=== PATIENT | female | born 1945 | race Caucasian/White ===

== ENCOUNTER → 2018-09-12 | Outpatient (CLI) | payer MEDICARE, OTHER ==
--- NOTE | 2018-09-12 14:12 | RADIOLOGY REPORT (SQ) ---
EXAM DESCRIPTION: U/S RETROPERITON (RENAL/AORTA) COMPLETED DATE/TIME: 09/12/2018 11:25 am REASON FOR STUDY: Chronic kidney disease COMPARISON: None. TECHNIQUE: Dynamic and static grayscale images acquired of the kidneys and bladder and recorded on P ACS. Additional selected color Doppler and spectral images recorded. LIMITATIONS: None. FINDINGS: RIGHT KIDNEY: The right kidney measures 7.5 cm in length and has an atrophic appearance. Diffuse increased echogenicity of the kidney, likely consistent with the history of underlying medic al renal disease. Several cystic lesions identified. The tow largest measure 1.1 x 1.3 x 1.0 cm and 0.8 x 1.1 x 1.1 cm no hydronephrosis. LEFT KIDNEY: The left kidney measures 9.1 cm in length. Diffuse increased echogenicity, likely cons istent with the history of underlying medical renal disease. Multiple cystic lesions are noted. The two largest measure 1.2 x 1.5 x 0.9 cm and 0.9 x 1.0 x 0.6 cm. No hydronephrosis. BLADDER: No masses. Bilateral ureteral jets are visualized. OTHER FINDINGS: No other significant finding. IMPRESSION: 1. Diffuse increased echogenicity of the kidneys, the findings are likely consistent wi th the patient's known history of chronic kidney disease. 2. Atrophic right kidney. 3. Small bilateral renal cysts. 4. No evidence of hydronephrosis. 5. NORMAL BLADDER ULTRASOUND. TECHNICAL DOCUMENTATION: JOB ID: [id number] [employer]- All Rights Reserved Reading location - IP/workstation name: [email or web address]
== END ==
LOC: RAD 09:45
PROVIDERS: ATTEND Internal Medicine Nephrology
DX: R33.9 Retention of urine, unspecified (principal); N18.4 Chronic kidney disease, stage 4 (severe)
CPT/HCPCS: 76770

== ENCOUNTER → 2018-11-20 | Outpatient (CLI) | payer MEDICARE, OTHER ==
[2018-11-20 11:48] LABS: ABSOLUTE BASOPHILS # (AUTO) 0.1 10^3/uL (0.0-0.2); ABSOLUTE LYMPHOCYTES (AUTO) 2.2 10^3/uL (0.5-4.7); ABSOLUTE MONOCYTES (AUTO) 0.9 10^3/uL (0.1-1.4); ABSOLUTE NEUT (AUTO) 5.9 10^3/uL (1.7-8.2); BASOPHILS % (AUTO) 0.7 % (0-2); EOSINOPHILS % (AUTO) 0.1 % (0-6); HEMATOCRIT 37.4 % (36.0-47.0); HEMOGLOBIN 12.7 g/dL (12.0-15.5); LYMPHOCYTES % (AUTO) 24.3 % (13-45); MEAN CORPUSCULAR HEMOGLOBIN 30.8 pg (27.0-33.4); MEAN CORPUSCULAR VOLUME 91 fl (80-97); MONOCYTES % (AUTO) 9.7 % (3-13); PLATELET COUNT 303 10^3/uL (150-450); RED BLOOD COUNT 4.12 10^6/uL (3.72-5.28); RED CELL DISTRIBUTION WIDTH 14.9 % (11.5-14.0); SEGMENTED NEUTROPHILS % (AUTO) 65.2 % (42-78); TOTAL CELLS COUNTED % (AUTO) 100 %; WHITE BLOOD COUNT 9.1 10^3/uL (4.0-10.5)
[2018-11-20 12:04] LABS: ALBUMIN 4.3 g/dL (3.5-5.0); ANION GAP 13 (5-19); BLOOD UREA NITROGEN 41 mg/dL (7-20); CALCIUM 9.7 mg/dL (8.4-10.2); CARBON DIOXIDE 26 mmol/L (22-30); CHLORIDE 104 mmol/L (98-107); GLUCOSE 108 mg/dL (75-110); PHOSPHORUS 4.1 mg/dL (2.5-4.5); POTASSIUM 4.7 mmol/L (3.6-5.0); SODIUM 142.6 mmol/L (137-145)
[2018-11-20 16:45] LABS: APPEARANCE,URINE CLOUDY; BILIRUBIN,URINE NEGATIVE (NEGATIVE); COLOR,URINE AMBER; GLUCOSE, URINE NEGATIVE (NEGATIVE); KETONES,URINE NEGATIVE (NEGATIVE); LEUKOCYTE ESTERASE,URINE LARGE (NEGATIVE); NITRITE,URINE POSITIVE (NEGATIVE); PROTEIN,URINE NEGATIVE (NEGATIVE); URINE SPECIFIC GRAVITY 1.013; UROBILINOGEN,URINE NEGATIVE mg/dL (<2.0)
[2018-11-22 11:39] LABS: CREATININE URINE 82.7 mg/dL (Not Estab.); MICROALBUMIN URINE 39.2 ug/mL (Not Estab.)
== END ==
LOC: OD 11:01
PROVIDERS: ATTEND Internal Medicine Nephrology
DX: I12.9 Hypertensive chronic kidney disease with stage 1 through stage 4 chronic kidney disease, or unspecified chronic kidney disease (principal); N18.4 Chronic kidney disease, stage 4 (severe); D64.9 Anemia, unspecified; N39.0 Urinary tract infection, site not specified
CPT/HCPCS: 36415; 80069; 81001; 82043; 82306; 82570; 83970; 85025; 87086; 87088; 87186

== ENCOUNTER → 2019-01-02 | Outpatient (CLI) | payer MEDICARE, OTHER ==
[~2019-01-02] MED LIST: ALBUTEROL SULFATE 0.083% NEB 2.5 MG/3 ML AMPUL NEB ONE
[2019-01-02 10:03] LABS: ARTERIAL BLOOD BASE EXCESS -1.5 mmol/L; ARTERIAL BLOOD H2CO3 1.14 mmol/L (1.05-1.35); ARTERIAL BLOOD HCO3 22.9 mmol/L (20-24); ARTERIAL BLOOD O2 SATURATION 95.2 % (94-98); ARTERIAL BLOOD PCO2 37.8 mmHg (35-45); ARTERIAL BLOOD PO2 75.3 mmHg (80-100); ARTERIAL BLOOD TOTAL CO2 24.1 mmol/L (21-25)
[2019-01-02 10:09] LABS: ARTERIAL BLOOD FIO2 ROOM AIR
--- NOTE | 2019-01-03 15:39 | Pulmonary Function Test ---
Pulmonary Function Test Date of Procedure:: 01/09/19 INDICATION:: Dyspnea Referring Provider: Dr. Spence Hog Driver: Jana Das NEUROLOGY TECHNICIAN - Report Spirometry: FVC 3.20 L 107% postbronchodilator 3.36 L 112% FEV1 1.09 L 49% postbronchodilator 1.30 L 58% FEV1/FVC % 34 postbronchodilator 39 predicted 81 FEF 25-75% 0.27 L 14% postbronchodilator 0.36 L 19% Lung Volume: Total lung capacity 4.95 L 92% Vital capacity 3.20 L 107% Inspiratory capacity 2.04 L FRC N2 2.90 101% ERV 0.57 L RV 1.75 L 80% RV/TLC % 35 predicted 31 Diffusion Capactity: Diffusion capacity 7.2 32% DLCO/VA 1.74 48% Impression: Severe obstructive ventilatory defect good response to bronchodilator therapy. No restrictive ventilatory defect. No hyperinflation or air trapping. Extremely severe decrease in diffusion capacity.
== END ==
LOC: RT 09:20
PROVIDERS: ATTEND Internal Medicine Cardiovascular Disease
DX: R06.00 Dyspnea, unspecified (principal); R09.02 Hypoxemia
CPT/HCPCS: 82803; 36600; 94729; 94727; 94060; A9270

== ENCOUNTER 2019-01-15 19:11 | Emergency (ER) | payer MEDICARE, OTHER ==
--- NOTE | 2019-01-15 20:30 | ER Document Report ---
ED Headache - General Chief Complaint: Headache Stated Complaint: HEAD PAIN Time Seen by Provider: 01/15/19 20:03 Primary Care Provider: BERTRAND BREWSTER MD [Primary Care Provider] - Follow up as needed Mode of Arrival: Ambulatory Information source: Patient TRAVEL OUTSIDE OF THE [place] IN LAST 30 DAYS: No - HPI Patient complains to provider of: Headache, Facial pain Notes: Patient is here with complaints of right sided head and jaw pain as well as ear pain. Pain started yesterday. She states that she gets a brief sharp shooting pain in her ear, right jaw, right posterior scalp. She denies any pain to the right mandaen area. She denies any blurred or loss vision. She denies any unilateral numbness, tingling, weakness. No chest pain or shortness of breath. No fever. She denies any injury. She is on blood thinning medications. She denies any chest pain or shortness of breath. She denies any nausea, vomiting, diarrhea. No difficulty breathing or swallowing. The pain is intermittent, sharp, moderate to severe when she is having it, the pain is fleeting and very brief. Nothing makes the pain better or worse. She denies any other complaints at this time. Past Medical History - Social History Smoking Status: Former Smoker Frequency of alcohol use: None Drug Abuse: None Family History: Reviewed & Not Pertinent Patient has suicidal ideation: No Patient has homicidal ideation: No - Past Medical History Cardiac Medical History: Reports: Hx Heart Attack, Hx Hypertension Renal/ Medical History: Denies: Hx Peritoneal Dialysis Musculoskeletal Medical History: Reports Hx Arthritis - L-5 down Past Surgical History: Reports: Hx Appendectomy, Hx Gynecologic Surgery, Hx Urinary Tract Surgery Review of Systems - Review of Systems -: Yes All other systems reviewed and negative Physical Exam - Vital signs Vitals: Temp Pulse Resp BP Pulse Ox 97.9 F 63 18 159/75 H 95 01/15/19 19:23 01/15/19 19:23 01/15/19 19:23 01/15/19 19:23 01/15/19 19:23 - Notes Notes: GENERAL: alert, cooperative, nontoxic, no distress. HEAD: normocephalic, atraumatic. No tenderness or swelling to the right mandaen. No tenderness to the right scalp. EYES: conjunctiva pink without discharge, no external redness or swelling. Pupils are equal, round, reactive to light. EARS: no external swelling, no external redness. Bilateral ear canals clear with no erythema, drainage, swelling. Bilateral TMs pearly hanley, normal landmarks, no perforation, no erythema, no effusion. No redness, swelling, tenderness to the mastoids bilaterally. NOSE: atraumatic, no external swelling MOUTH/THROAT: mucous membranes moist and pink, posterior pharynx without erythema, swelling, exudate. No trismus or drooling. No gum swelling. No lesions. NECK: soft, supple, full range of motion, no meningismus. CHEST: no distress, lungs clear and equal throughout. No wheezing, rales, rhonchi. CARDIAC: regular rate and rhythm, no murmur, normal capillary refill, normal pulses. No peripheral edema noted. BACK: full range of motion, no CVA tenderness. EXTREMITIES: full range of motion of all extremities. No redness, no swelling. NEURO: alert and oriented x 3, cranial nerves II through XII are grossly intact. Upper and lower extremities are equal throughout. Normal sensation. No focal deficits, full range of motion of all extremities. normal finger to nose. PYSCH: appropriate mood, affect. Patient is cooperative. SKIN: pink, warm, dry, no rash. Course - Re-evaluation Re-evalutation: 01/15/19 20:26 Patient is nontoxic-appearing with stable vitals. The patient is here with complaints of right sided head, ear, jaw pain. Pain is been going on since yesterday. The pain is very brief, fleeting, sharp in nature. No injury. No blood thinners. Ear exam is normal. Scalp exam is normal. Dental exam is normal. She has no temporal tenderness to palpation. She has a nonfocal normal neurological exam. She has no visual complaints. The patient sounds to be having some sort of neuralgia type pain. This point do not believe that lab work would be of any benefit or value. Head CT is not indicated at this time. Patient will be discharged home with instructions to follow-up with her primary care doctor. I will give her a referral to neurology as well. She is instructed to follow-up sooner if she develops worsening pain, fever, redness, swelling, blurred or loss vision, severe pain, numbness, tingling, weakness, any further concerns. The patient's emergency department workup and current diagnosis were explained to the patient and or family. Follow-up instructions were provided. Medications if prescribed were discussed. Instructions for when to return to the emergency department including specific worrisome symptoms were discussed with the patient and/or family. - Vital Signs Vital signs: Temp Pulse Resp BP Pulse Ox 97.9 F 63 18 159/75 H 95 01/15/19 19:23 01/15/19 19:23 01/15/19 19:23 01/15/19 19:23 01/15/19 19:23 Discharge - Discharge Clinical Impression: Neuralgia Condition: Stable Disposition: HOME, SELF-CARE Instructions: Headache ([facility]), Neuralgia ([facility]) Additional Instructions: Follow-up with your primary care doctor at the next available appointment. Follow-up sooner or return the emergency department for worsening pain, fever, swelling, blurred or loss vision, chest pain or shortness of breath, nausea, vomiting, diarrhea, numbness, tingling, weakness, any further concerns. Referrals: BERTRAND BREWSTER MD [Primary Care Provider] - Follow up as needed THEODORE LOERA MD [NO LOCAL MD] - Follow up as needed
[2019-01-15 20:48] VITALS: BP 176/76
== END 2019-01-15 20:49 | disposition home or self-care (01) ==
LOC: ER 19:11
DX: M79.2 Neuralgia and neuritis, unspecified (principal); R51 Headache; R68.84 Jaw pain; I10 Essential (primary) hypertension; I25.2 Old myocardial infarction
CPT/HCPCS: 99283

== ENCOUNTER → 2019-02-12 | Outpatient (CLI) | payer MEDICARE, OTHER ==
[2019-02-12 15:22] LABS: ANION GAP 10 (5-19); BLOOD UREA NITROGEN 25 mg/dL (7-20); CALCIUM 9.5 mg/dL (8.4-10.2); CARBON DIOXIDE 27 mmol/L (22-30); CHLORIDE 106 mmol/L (98-107); GLUCOSE 117 mg/dL (75-110); POTASSIUM 4.5 mmol/L (3.6-5.0); SODIUM 142.5 mmol/L (137-145)
[2019-02-12 15:55] LABS: CHOLESTEROL 208.75 mg/dL (0-200); TRIGLYCERIDES 209 mg/dL (<150)
[2019-02-12 15:56] LABS: ALANINE AMINOTRANSFERASE 41 U/L (9-52); ALBUMIN 3.7 g/dL (3.5-5.0); ALKALINE PHOSPHATASE 67 U/L (38-126); ASPARTATE AMINO TRANSFERASE 34 U/L (14-36); BILIRUBIN,DIRECT 0.2 mg/dL (0.0-0.4); BILIRUBIN,TOTAL 0.2 mg/dL (0.2-1.3); TOTAL PROTEIN 6.5 g/dL (6.3-8.2)
[2019-02-12 16:10] LABS: DIRECT LDL 96 mg/dL (<100)
[2019-02-12 16:14] LABS: VLDL CHOLESTEROL 41.8 mg/dL (10-31)
[2019-02-14 12:38] LABS: CREATININE URINE 106.4 mg/dL (Not Estab.); MICROALBUMIN URINE 60.3 ug/mL (Not Estab.)
== END ==
LOC: OD 14:39
PROVIDERS: ATTEND Internal Medicine Nephrology
DX: I12.9 Hypertensive chronic kidney disease with stage 1 through stage 4 chronic kidney disease, or unspecified chronic kidney disease (principal); N18.4 Chronic kidney disease, stage 4 (severe); Q61.9 Cystic kidney disease, unspecified; R80.9 Proteinuria, unspecified; E78.5 Hyperlipidemia, unspecified; I48.91 Unspecified atrial fibrillation; N18.9 Chronic kidney disease, unspecified
CPT/HCPCS: 36415; 80053; 80061; 82043; 82570; 83880; 83970; 84443

== ENCOUNTER → 2019-05-21 | Outpatient (CLI) | payer MEDICARE, OTHER ==
[2019-05-21 11:50] LABS: APPEARANCE,URINE CLEAR; BILIRUBIN,URINE NEGATIVE (NEGATIVE); COLOR,URINE STRAW; GLUCOSE, URINE NEGATIVE (NEGATIVE); KETONES,URINE NEGATIVE (NEGATIVE); LEUKOCYTE ESTERASE,URINE TRACE (NEGATIVE); NITRITE,URINE NEGATIVE (NEGATIVE); PROTEIN,URINE NEGATIVE (NEGATIVE); UROBILINOGEN,URINE NEGATIVE mg/dL (<2.0)
[2019-05-21 12:00] LABS: ALBUMIN 3.8 g/dL (3.5-5.0); ANION GAP 10 (5-19); BLOOD UREA NITROGEN 31 mg/dL (7-20); CALCIUM 9.7 mg/dL (8.4-10.2); CARBON DIOXIDE 26 mmol/L (22-30); CHLORIDE 103 mmol/L (98-107); GLUCOSE 131 mg/dL (75-110); PHOSPHORUS 3.9 mg/dL (2.5-4.5); POTASSIUM 4.4 mmol/L (3.6-5.0)
[2019-05-21 13:09] LABS: ABSOLUTE LYMPHOCYTES (AUTO) 1.8 10^3/uL (0.5-4.7); ABSOLUTE MONOCYTES (AUTO) 0.9 10^3/uL (0.1-1.4); ABSOLUTE NEUT (AUTO) 4.6 10^3/uL (1.7-8.2); BASOPHILS % (AUTO) 0.6 % (0-2); EOSINOPHILS % (AUTO) 0.1 % (0-6); HEMATOCRIT 39.1 % (36.0-47.0); HEMOGLOBIN 13.2 g/dL (12.0-15.5); LYMPHOCYTES % (AUTO) 24.5 % (13-45); MEAN CORPUSCULAR HEMOGLOBIN 29.8 pg (27.0-33.4); MEAN CORPUSCULAR HGB CONC 33.7 g/dL (32.0-36.0); MEAN CORPUSCULAR VOLUME 88 fl (80-97); MONOCYTES % (AUTO) 12.3 % (3-13); PLATELET COUNT 257 10^3/uL (150-450); RED BLOOD COUNT 4.42 10^6/uL (3.72-5.28); RED CELL DISTRIBUTION WIDTH 15.2 % (11.5-14.0); SEGMENTED NEUTROPHILS % (AUTO) 62.5 % (42-78); TOTAL CELLS COUNTED % (AUTO) 100 %; WHITE BLOOD COUNT 7.4 10^3/uL (4.0-10.5)
[2019-05-22 13:37] LABS: CREATININE URINE 57.6 mg/dL (Not Estab.); MICROALBUMIN URINE 24.8 ug/mL (Not Estab.)
== END ==
LOC: OD 11:10
PROVIDERS: ATTEND Internal Medicine Nephrology
DX: I12.9 Hypertensive chronic kidney disease with stage 1 through stage 4 chronic kidney disease, or unspecified chronic kidney disease (principal); N18.4 Chronic kidney disease, stage 4 (severe); R80.9 Proteinuria, unspecified; N25.81 Secondary hyperparathyroidism of renal origin
CPT/HCPCS: 36415; 80069; 81001; 82043; 82306; 82570; 83970; 85025

== ENCOUNTER → 2019-05-25 | Outpatient (CLI) | payer MEDICARE, OTHER ==
--- NOTE | 2019-05-25 13:43 | RADIOLOGY REPORT (SQ) ---
EXAM DESCRIPTION: CT CHEST WITHOUT COMPLETED DATE/TIME: 05/25/2019 1:25 pm REASON FOR STUDY: R06.00 DYSPNEA, UNSPECIFIED R06.00 DYSPNEA, UNSPECIFIED COMPARISON: None. TECHNIQUE: CT scan performed of the chest without intravenous contrast. Images reviewed with lung, soft tissue and bone windows. Reconstructed coronal and sagittal MPR images reviewed. All images st ored on PACS. All CT scanners at this facility use dose modulation, iterative reconstruction, and/or weight based d osing when appropriate to reduce radiation dose to as low as reasonably achievable (ALARA). [facility]: Dose Right [facility]: CareDose [facility]: Dose Right [facility]: Teradose 4D [facility]: [employer] RADIATION DOSE: CT Rad equipment meets quality standard of care and radiation dose reduction techniq ues were employed. CTDIvol: 9.5 mGy. DLP: 379 mGy-cm. mGy. LIMITATIONS: No technical limitations. FINDINGS: LUNGS AND PLEURA: There are bilateral pulmonary nodules. In the right upper lobe there is a 7.2 mm subpleural pulmonary nodule best demonstrated on series 4, image 75. On series 4, image 74 there is a 6.9 mm nodule adjacent to the major fissure this appears to represent scar. In the left lower lobe on image 78 there is a 9.6 mm slightly spiculated nodule. There are small numerous bilate ral subpleural pulmonary nodules measuring only 3 to 4 mm in greatest diameter. These are nonspecifi c. These are most notable on series 4, image 66 in the right base and on image 67. No consolidation or pleural effusions. Mild bilateral emphysematous change. HILAR AND MEDIASTINAL STRUCTURES: No identified masses or abnormal nodes. No obvious aneurysm. HEART AND VASCULAR STRUCTURES: No aneurysm. No pericardial effusion. UPPER ABDOMEN: No significant findings. Limited exam. THYROID AND OTHER SOFT TISSUES: No masses. No adenopathy. BONES: No significant finding. HARDWARE: None in the chest. OTHER: No other significant findings. IMPRESSION: 1. Nonspecific bilateral pulmonary nodules. The largest is in the left base and measur es 9.6 mm in diameter. 2. 7.2 mm subpleural nodule in the right upper lobe. COMMENT: FLEISCHNER CRITERIA FOR FOLLOW-UP OF PULMONARY NODULES Incidentally detected new nodules in persons 35 or older. HIGH RISK: History of smoking or other known risk factors. >8mm single solid nodule: LOW and HIGH RISK: consider CT, PET/CT or biopsy at 3 mo. TECHNICAL DOCUMENTATION: JOB ID: [id number] Quality ID # [id number]: Final reports with documentation of one or more dose reduction techniques (e.g., Au tomated exposure control, adjustment of the mA and/or kV according to patient size, use of iterative reconstruction technique) 2010 [employer]- All Rights Reserved Reading location - IP/workstation name: [email or web address]
[2019-05-26 14:36] LABS: SCLERODERMA-70 ANTIBODIES <0.2 AI (0.0-0.9)
[2019-05-28 18:36] LABS: ANTIMYELOPEROXIDASE (MPO) AB <9.0 U/mL (0.0-9.0); CYTOPLASMIC (C-ANCA) <1:20 titer (Neg:<1:20)
[2019-05-28 19:40] LABS: ATYPICAL PANCA <1:20 titer (Neg:<1:20)
== END ==
LOC: RAD 12:49
PROVIDERS: ATTEND Internal Medicine Pulmonary Disease
DX: R06.00 Dyspnea, unspecified (principal); R91.1 Solitary pulmonary nodule
CPT/HCPCS: 36415; 71250; 83516; 86038; 86235; 86256; 86430

== ENCOUNTER → 2019-08-21 | Outpatient (CLI) | payer MEDICARE, OTHER ==
[2019-08-21 14:09] LABS: ANION GAP 10 (5-19); BLOOD UREA NITROGEN 35 mg/dL (7-20); CALCIUM 9.6 mg/dL (8.4-10.2); CARBON DIOXIDE 27 mmol/L (22-30); CHLORIDE 102 mmol/L (98-107); GLUCOSE 122 mg/dL (75-110); POTASSIUM 4.2 mmol/L (3.6-5.0)
[2019-08-22 10:37] LABS: CREATININE URINE 45.9 mg/dL (Not Estab.); MICROALBUMIN URINE 9.1 ug/mL (Not Estab.)
== END ==
LOC: OD 13:23
PROVIDERS: ATTEND Internal Medicine Nephrology
DX: I12.9 Hypertensive chronic kidney disease with stage 1 through stage 4 chronic kidney disease, or unspecified chronic kidney disease (principal); N18.4 Chronic kidney disease, stage 4 (severe); N25.81 Secondary hyperparathyroidism of renal origin
CPT/HCPCS: 36415; 80048; 82043; 82570; 83970

== ENCOUNTER → 2019-08-27 | Outpatient (CLI) | payer MEDICARE, OTHER ==
--- NOTE | 2019-08-27 10:42 | RADIOLOGY REPORT (SQ) ---
EXAM DESCRIPTION: CT CHEST WITHOUT COMPLETED DATE/TIME: 08/27/2019 10:17 am REASON FOR STUDY: OTHER NONSPECIFIC ABNORMAL FINDING OF LUNG FIELD (R91.8) R91.8 OTHER NONSPECIFIC ABNORMAL FINDING OF LUNG FIELD COMPARISON: CT chest 05/25/2019 TECHNIQUE: CT scan performed of the chest without intravenous contrast. Images reviewed with lung, soft tissue and bone windows. Reconstructed coronal and sagittal MPR images reviewed. All images st ored on PACS. All CT scanners at this facility use dose modulation, iterative reconstruction, and/or weight based d osing when appropriate to reduce radiation dose to as low as reasonably achievable (ALARA). [facility]: Dose Right [facility]: CareDose [facility]: Dose Right [facility]: Teradose 4D [facility]: [employer] RADIATION DOSE: CT Rad equipment meets quality standard of care and radiation dose reduction techniq ues were employed. CTDIvol: 10.6 mGy. DLP: 448 mGy-cm. mGy. LIMITATIONS: No technical limitations. FINDINGS: LUNGS AND PLEURA: A 1.4 x 1.4 cm solid nodule with irregular peripheral margins is present in the left lower lobe on axial image 85/143 (was 10 mm diameter 05/25/2019). Consider PET-CT or CT- guided lung biopsy for followup. Other stable benign-appearing nodules are present as follows: Less than 7 mm part solid right lower lobe nodule image 78/143 7 mm smooth round noncalcified subpleural right middle lobe nodule adjacent to the minor fissure axia l image 79/143 6 mm subpleural smooth round noncalcified nodule right lower lobe axial image 101/143 Remainder of the lungs exhibit hyperinflation and hyperlucency from obstructive disease. No pleural effusion. No pneumothorax. Airways are patent. HILAR AND MEDIASTINAL STRUCTURES: No identified masses or abnormal nodes. No obvious aneurysm. HEART AND VASCULAR STRUCTURES: No aneurysm. No pericardial effusion. Calcified coronary arteries UPPER ABDOMEN: 2 mm left upper pole intrarenal nonobstructive calculus THYROID AND OTHER SOFT TISSUES: No masses. No adenopathy. BONES: No significant finding. HARDWARE: None in the chest. OTHER: No other significant findings. IMPRESSION: 1.4 x 1.4 cm nodule left lower lobe worrisome for malignancy. Consider either CT-guided biopsy or PET-CT for follow-up TECHNICAL DOCUMENTATION: JOB ID: [id number] Quality ID # [id number]: Final reports with documentation of one or more dose reduction techniques (e.g., Au tomated exposure control, adjustment of the mA and/or kV according to patient size, use of iterative reconstruction technique) 2010 [employer]- All Rights Reserved Reading location - IP/workstation name: [email or web address]
== END ==
LOC: RAD 09:49
PROVIDERS: ATTEND Registered Nurse
DX: R91.8 Other nonspecific abnormal finding of lung field (principal)
CPT/HCPCS: 71250

== ENCOUNTER → 2019-09-11 | Outpatient (CLI) | payer MEDICARE, OTHER ==
--- NOTE | 2019-09-12 11:50 | RADIOLOGY REPORT (SQ) ---
EXAM DESCRIPTION: PET CT SKULL/THIGH COMPLETED DATE/TIME: 09/11/2019 8:27 pm REASON FOR STUDY: (R91.1)SOLITARY PULMONARY NODULE R91.1 SOLITARY PULMONARY NODULE R91.8 OTHER NON SPECIFIC ABNORMAL FINDING OF LUNG FIELD COMPARISON: None. RADIONUCLIDE AND DOSE: 10.43 mCi F18 FDG The route of agent administration: Intravenous FASTING BLOOD SUGAR: 112 mg/dl CONTRAST TYPE AND DOSE: No CT contrast given. TECHNIQUE: Blood glucose level was verified. Above dose of FDG was injected intravenously. 2-D seg mented attenuation correction images were obtained from the base of the skull to the midthighs. Nonc ontrast CT images were obtained for attenuation correction and fusion with emission images. CT image s were performed without oral or intravenous contrast and are not sensitive for parenchymal lesions. A series of overlapping emission PET images were obtained. Images reviewed and manipulated at [facility] work station by the radiologist. Images stored on PACS. LIMITATIONS: None. FINDINGS: HEAD AND NECK: No areas of abnormal metabolic activity in the soft tissues of the head and neck. CHEST: The 13 x 12 mm nodule in the left lower lobe (image 109 of series 3) demonstrates avid FDG upt malena with a maximum SUV of 7.5. The 7 mm subpleural nodule in the right middle lobe (image 110 of ser ies 3), the 6 mm subpleural nodule in the right lower lobe (image 126 of series 3), and the 7 mm kyle fissural nodule in the right lower lobe (image 103 of series 3) are stable in size from 05/25/2019 and are outside the spatial resolution of PET. There is no enlarged or hypermetabolic mediastinal or hi lar adenopathy. ABDOMEN AND PELVIS: The liver demonstrates heterogeneous non focal FDG uptake with an average SUV of 3.6. There is expected physiologic activity throughout the gastrointestinal and genitourinary tracts . No areas of abnormal metabolic activity are identified in the abdomen and pelvis. PROXIMAL LOWER EXTREMITIES: No areas of abnormal metabolic activity in the soft tissues of the lower extremities. BONES: No areas of abnormal metabolic activity in the imaged axial and appendicular skeleton. ADDITIONAL CT FINDINGS: 11 x 8 mm left thyroid nodule (image 60 of series 3) that demonstrates no abn ormal FDG uptake on PET - if needed correlation with ultrasound could be obtained. There is no enlar ged supraclavicular or axillary adenopathy. There is atherosclerotic calcification of the coronary a rteries and thoracic aorta. There is no cardiomegaly or pericardial effusion. The morphology of the liver is non cirrhotic. There is no CT evidence of hepatic steatosis. The spleen is normal in size . The nodular enlargement of the left adrenal gland is nonspecific and could represent nodular hyper plasia. There is no hydronephrosis, nephrolithiasis, hydroureter the punctate calcification in the u pper pole of the left kidney could represent a caliceal calculus. There is no hydronephrosis, hydrou reter or ureterolithiasis. There is no retroperitoneal adenopathy, hemorrhage or mass. The abdomina l aorta is normal in caliber. There is colonic diverticulosis without diverticulitis. The urinary b ladder is nondistended. The lobular contour of the uterus could be due to fibroids. There is no abn ormality of the adnexal that is apparent on CT. IMPRESSION: The 13 x 12 mm nodule in the left lower lobe demonstrates avid FDG uptake and is concern ing for a malignant neoplasm. The other subpleural and perifissural nodules scattered throughout the right middle and lower lobes measure less than 10 mm in diameter and are therefore outside the spati al resolution of PET. There is no metabolic evidence of metastatic spread. TECHNICAL DOCUMENTATION: JOB ID: [id number] [employer]- All Rights Reserved Reading location - IP/workstation name: [email or web address]
== END ==
LOC: RAD 10:15
PROVIDERS: ATTEND Registered Nurse
DX: R91.1 Solitary pulmonary nodule (principal); R91.8 Other nonspecific abnormal finding of lung field
CPT/HCPCS: 78815; A9552

== ENCOUNTER → 2019-10-10 | Outpatient (CLI) | payer MEDICARE, OTHER ==
--- NOTE | 2019-10-11 15:57 | RADIOLOGY REPORT (SQ) ---
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 TECHNIQUE: Multiplanar imaging includes non-contrasted T1, T2, FLAIR, and diffusion with ADC map seq uences. Images stored on PACS. LIMITATIONS: None. FINDINGS: ANATOMY: No anomalies. Normal vascular flow voids. Pituitary fossa normal. CSF SPACES: Normal in size and contour. No hemorrhage. CEREBRUM: Sulci and gyri normal in size and contour. There are few, small scattered areas of increas ed white matter signal on FLAIR imaging. No evidence of hemorrhage, mass, or extraaxial fluid collec tion. POSTERIOR FOSSA: No signal alteration. No hemorrhage. No edema, masses or mass effect. Internal man tory canals, cerebello-pontine angles, mastoids normal. DIFFUSION IMAGING: Negative for acute or sub-acute infarction. ORBITS: No masses. Globes normal. PARANASAL SINUSES: No fluid levels. Mucosa normal. OTHER: No other significant finding. IMPRESSION: Mild chronic microvascular ischemia. No evidence of metastatic disease in the brain. EVIDENCE OF ACUTE STROKE: NO. TECHNICAL DOCUMENTATION: JOB ID: [id number] [employer]- All Rights Reserved Reading location - IP/workstation name: [email or web address]
--- NOTE | 2019-10-12 11:13 | Pulmonary Function Test ---
Pulmonary Function Test Date of Procedure:: 10/10/19 INDICATION:: Dyspnea Referring Provider: Dr. Dell Mims Premium Auditor: Kat Snell, MANUFACTURING PLANNER, [employer] - Report Spirometry: Spirometry: pre-FVC: 3.53 L 119% post-FVC: 3.28 L 111% pre-FEV:1 1.25 L 57% post-FEV1: 1.36 L 62% pre-FEV1/FVC %: 35 post-FEV1/FVC%: 42 predicted: 81 [id number]%: 0.31 L 16% [id number]%: 0.46 L 24% Lung Volume: Total lung capacity: 6.72 L 106% Vital capacity: 3.53 L 119% Inspiratory capacity: 2.30 L FRC N2: 3.43 L 122% ERV: 0.17 L RV: 2.19 L 100% RV/TLC %:: 38 predicted 41 Diffusion Capactity: DLCO: 8.2 36% DLCO/VA: 1.73 48% Impression: Severe obstructive ventilatory defect. Minimal response to bronchodilator therapy. This does not preclude a clinical trial of bronchodilator therapy. No restrictive ventilatory defect. No hyperinflation or air trapping. Extremely severe decrease in diffusion capacity.
== END ==
LOC: RAD 07:11
PROVIDERS: ATTEND Internal Medicine
DX: C34.32 Malignant neoplasm of lower lobe, left bronchus or lung (principal)
CPT/HCPCS: 70551; 94729; 94727; 94060; A9270

== ENCOUNTER 2019-10-30 12:46 | Emergency (ER) | payer MEDICARE | END 2019-10-30 14:20 | disposition left against medical advice (07) | LOC: ER 12:46 | DX: Z53.21 Procedure and treatment not carried out due to patient leaving prior to being seen by health care provider (principal); R10.9 Unspecified abdominal pain ==

== ENCOUNTER → 2020-01-07 | Outpatient (CLI) | payer MEDICARE, OTHER ==
--- NOTE | 2020-01-07 09:03 | RADIOLOGY REPORT (SQ) ---
EXAM DESCRIPTION: CT CHEST WITHOUT; CT ABD/PELVIS NO ORAL OR IV IMAGES COMPLETED DATE/TIME: 01/07/2020 8:40 am REASON FOR STUDY: C34.32 MALIGNANT NEOPLASM OF LOWER LOBE, LEFT BRONCHUS OR LUNG C34.32 MALIGNANT N EOPLASM OF LOWER LOBE, LEFT BRONCHUS OR URIEL COMPARISON: PET-CT dated 09/11/2019, CT chest dated 08/27/2019 TECHNIQUE: CT scan of the abdomen and pelvis performed without intravenous contrast and withoutoral contrast using helical scanning technique with dynamic intravenous contrast injection. Images review ed with lung, soft tissue and bone windows. Reconstructed coronal and sagittal MPR images reviewed. All images stored on PACS. All CT scanners at this facility use dose modulation, iterative reconstruction, and/or weight based d osing when appropriate to reduce radiation dose to as low as reasonably achievable (ALARA). [facility]: Dose Right [facility]: SureCare [facility]: Dose Right [facility]: Teradose 4D [facility]: Smart [employer] RADIATION DOSE: CT Rad equipment meets quality standard of care and radiation dose reduction techniq ues were employed. CTDIvol: 7.2 - 12.7 mGy. DLP: 968 mGy-cm.mGy. LIMITATIONS: None. FINDINGS: LIVER: Normal size. No masses. No dilated ducts. SPLEEN: Normal size. No focal lesions. PANCREAS: No masses. No significant calcifications. No adjacent inflammation or peripancreatic flui d collections. Pancreatic duct not dilated. GALLBLADDER: Small layering stones. ADRENAL GLANDS: No significant masses or asymmetry. RIGHT KIDNEY AND URETER: No solid masses. Assessment limited by lack of IV contrast. No significant c alcification. No hydronephrosis or hydroureter. LEFT KIDNEY AND URETER: No solid masses. Assessment limited by lack of IV contrast. No significant ca lcification. No hydronephrosis or hydroureter. AORTA AND VESSELS: Atherosclerotic change. No aneurysmal dilatation. RETROPERITONEUM: No retroperitoneal adenopathy, hemorrhage or masses. APPENDIX: Surgically absent. LARGE AND SMALL BOWEL: Infrequent diverticuli. No masses. No inflammatory changes. ABDOMINAL WALL: No hernia or masses. PERITONEAL CAVITY: No free air. No free fluid. No peritoneal implants or masses. PELVIS: No mass or free fluid. Normal bladder. BONES: No significant or acute findings. OTHER: No other significant finding. IMPRESSION: No evidence of metastatic disease in the abdomen or pelvis. TECHNICAL DOCUMENTATION: JOB ID: [id number] Quality ID # 436: Final reports with documentation of one or more dose reduction techniques (e.g., Au tomated exposure control, adjustment of the mA and/or kV according to patient size, use of iterative reconstruction technique) 2010 [employer]- All Rights Reserved TECHNIQUE: CT scan of the chest performed without intravenous contrast using helical scanning techni que. Images reviewed with lung, soft tissue and bone windows. Reconstructed coronal and sagittal MPR images reviewed. All images stored on PACS. All CT scanners at this facility use dose modulation, iterative reconstruction, and/or weight based d osing when appropriate to reduce radiation dose to as low as reasonably achievable (ALARA). [facility]: Dose Right [facility]: CareDose [facility]: Dose Right [facility]: Teradose 4D [facility]: [employer] RADIATION DOSE: CT Rad equipment meets quality standard of care and radiation dose reduction techniq ues were employed. CTDIvol: 7.2 - 12.7 mGy. DLP: 968 mGy-cm. mGy. LIMITATIONS: None. FINDINGS: AXILLAE: No adenopathy. CHEST WALL: No masses. No subcutaneous air. LUNGS: Primary nodule in the left base is smaller in size measured 8.5 mm on today's study. There ar e surgical clips now present at this site. Demonstrated on lung windows series 6, image 67. Stable mild bilateral emphysematous changes. Stable 6 mm nodule on series 6, image 75 stable right lower lo be subpleural nodules. The largest is demonstrated on series 6, image 88. This measures approximate ly 6 mm in diameter. Nodule along the right major fissure is unchanged. This measures approximately 6.6 mm in diameter. PLEURA: No effusions. No calcifications. THYROID: No masses or significant asymmetry. HILAR AND MEDIASTINAL STRUCTURES: No identified masses or abnormal nodes. AORTA AND GREAT VESSELS: No aneurysm. HEART: No pericardial effusion. HARDWARE AND LIFELINES: None. BONES: No significant finding. OTHER: No other significant finding. IMPRESSION: Dominant pulmonary nodule in the left lower lobe is significantly smaller in size. Ther e is been some type of surgical procedure patient is also undergoing chemotherapy. Largest diameter is 8.5 mm. This is best demonstrated on lung windows series 6, image 67. Other previously described pulmonary nodules are unchanged. Reading location - IP/workstation name: [email or web address]
== END ==
LOC: RAD 08:26
PROVIDERS: ATTEND Physician Assistant Medical
DX: C34.32 Malignant neoplasm of lower lobe, left bronchus or lung (principal)
CPT/HCPCS: 71250; 74176

== ENCOUNTER → 2020-03-04 | Outpatient (CLI) | payer MEDICARE, OTHER ==
--- NOTE | 2020-03-05 08:52 | RADIOLOGY REPORT (SQ) ---
EXAM DESCRIPTION: PET CT SKULL/THIGH IMAGES COMPLETED DATE/TIME: 03/04/2020 11:23 am REASON FOR STUDY: LUNG CA C34.32 MALIGNANT NEOPLASM OF LOWER LOBE, LEFT BRONCHUS OR URIEL COMPARISON: 09/11/2019 PET-CT RADIONUCLIDE AND DOSE: 11.63 mCi F18 FDG The route of agent administration: Intravenous FASTING BLOOD SUGAR: 136 mg/dl CONTRAST TYPE AND DOSE: No CT contrast given. TECHNIQUE: Blood glucose level was verified. Above dose of FDG was injected intravenously. 2-D seg mented attenuation correction images were obtained from the base of the skull to the midthighs. Nonc ontrast CT images were obtained for attenuation correction and fusion with emission images. CT image s were performed without oral or intravenous contrast and are not sensitive for parenchymal lesions. A series of overlapping emission PET images were obtained. Images reviewed and manipulated at [facility] work station by the radiologist. Images stored on PACS. LIMITATIONS: None. FINDINGS: HEAD AND NECK: No areas of abnormal metabolic activity in the soft tissues of the head and neck. Unchanged heterogeneous thyroid. CHEST: Post treatment change and fiducial markers at the previously-seen left lower lobe pulmonary no dule which demonstrates decreased size measuring up to 7 mm maximally, previously 13 mm (series 3, im age 100). No residual pathologic FDG uptake appreciated (max SUV 0.7). There has been decrease in s ize of the perifissural nodule on the right measuring 5 mm, previously 7 mm (series 3, image 95) with out abnormal FDG uptake. Right middle lobe nodule stable measuring 7 mm (series 3, image 97). There new right-sided fiducial markers from prior PET-CT. Stable left-sided perifissural 5 mm nodule with out abnormal uptake (series 3, image 91). No new pathologic uptake within the thorax. Scattered cor onary atherosclerosis. ABDOMEN AND PELVIS: No areas of abnormal metabolic activity in the abdomen or pelvis. Expected physi ologic activity is present in the genitourinary system and bowel. Punctate nonobstructing left renal stone. Stable right renal cyst. Aortoiliac atherosclerosis. No evidence of acute intra-abdominal/ pelvic process. PROXIMAL LOWER EXTREMITIES: No areas of abnormal metabolic activity in the soft tissues of the lower extremities. BONES: No abnormal metabolic activity in the visualized skeleton. Lower lumbar spondylosis and facet arthropathy. See ADDITIONAL CT FINDINGS: As above. OTHER: Background hepatic activity max SUV 5.1. IMPRESSION: 1. Decreased size and metabolic activity of previously described left lower lobe pulmon marce nodule now measuring 7 mm, previously 13 mm (max SUV 0.07) compatible with favorable response. 2. Stable to decreased size of multiple additional bilateral pulmonary nodules without abnormal FDG uptake. Of note, PET-CT has limited sensitivity for subcentimeter pulmonary nodules. 3. No new pathologic FDG uptake to suggest residual or new metastatic disease. TECHNICAL DOCUMENTATION: JOB ID: [id number] 2010 [employer]- All Rights Reserved Reading location - IP/workstation name: [email or web address]
== END ==
LOC: RAD 08:10
PROVIDERS: ATTEND Internal Medicine
DX: C34.32 Malignant neoplasm of lower lobe, left bronchus or lung (principal); R91.8 Other nonspecific abnormal finding of lung field
CPT/HCPCS: 78815; A9552

== ENCOUNTER → 2020-06-06 | Outpatient (CLI) | payer MEDICARE, OTHER ==
--- NOTE | 2020-06-06 18:28 | RADIOLOGY REPORT (SQ) ---
EXAM DESCRIPTION: CT CHEST WITHOUT IMAGES COMPLETED DATE/TIME: 06/06/2020 10:59 am REASON FOR STUDY: LUNG CA C34.32 MALIGNANT NEOPLASM OF LOWER LOBE, LEFT BRONCHUS OR URIEL COMPARISON: 01/07/2020. PET-CT 03/04/2020. TECHNIQUE: CT scan performed of the chest without intravenous contrast. Images reviewed with lung, soft tissue and bone windows. Reconstructed coronal and sagittal MPR images reviewed. All images st ored on PACS. All CT scanners at this facility use dose modulation, iterative reconstruction, and/or weight based d osing when appropriate to reduce radiation dose to as low as reasonably achievable (ALARA). [facility]: Dose Right [facility]: CareDose [facility]: Dose Right [facility]: Teradose 4D [facility]: [employer] RADIATION DOSE: mGy. LIMITATIONS: No technical limitations. FINDINGS: LUNGS AND PLEURA: Scattered nodules bilaterally have a generally stable appearance. Previ ously noted irregular nodule in the left lower lobe looks less conspicuous, 6 mm maximally with less convex margins and less spiculation (image 73/143). No new opacities are detected. Emphysema. No s ignificant pleural disease developing. HILAR AND MEDIASTINAL STRUCTURES: No identified masses or abnormal nodes. No obvious aneurysm. HEART AND VASCULAR STRUCTURES: Heavy coronary calcification. No pericardial effusion. No evidence o f aortic aneurysm. Dense aortic calcification. UPPER ABDOMEN: See separate dictation same date. THYROID AND OTHER SOFT TISSUES: No masses. No adenopathy. BONES: No significant finding. HARDWARE: None in the chest. OTHER: No other significant findings. IMPRESSION: Left lower lobe nodule looks less conspicuous, as above. Otherwise stable exam. TECHNICAL DOCUMENTATION: JOB ID: [id number] Quality ID # 436: Final reports with documentation of one or more dose reduction techniques (e.g., Au tomated exposure control, adjustment of the mA and/or kV according to patient size, use of iterative reconstruction technique) 2010 [employer]- All Rights Reserved Reading location - IP/workstation name: [email or web address]
--- NOTE | 2020-06-06 18:32 | RADIOLOGY REPORT (SQ) ---
EXAM DESCRIPTION: CT ABD/PELVIS NO ORAL OR IV IMAGES COMPLETED DATE/TIME: 06/06/2020 10:59 am REASON FOR STUDY: LUNG CA C34.32 MALIGNANT NEOPLASM OF LOWER LOBE, LEFT BRONCHUS OR URIEL COMPARISON: 01/07/2020 TECHNIQUE: CT scan of the abdomen and pelvis performed without intravenous or oral contrast. Images reviewed with lung, soft tissue, and bone windows. Reconstructed coronal and sagittal MPR images revi ewed. All images stored on PACS. All CT scanners at this facility use dose modulation, iterative reconstruction, and/or weight based d osing when appropriate to reduce radiation dose to as low as reasonably achievable (ALARA). [facility]: Dose Right [facility]: CareDose [facility]: Dose Right [facility]: Teradose 4D [facility]: [employer] RADIATION DOSE: mGy. LIMITATIONS: None. FINDINGS: LOWER CHEST: See dedicated dictation same date. NON-CONTRASTED LIVER, SPLEEN, ADRENALS: Evaluation limited by lack of IV contrast. No identified sign ificant masses. PANCREAS: No masses. No peripancreatic inflammatory changes. GALLBLADDER: No identified stones by CT criteria. No inflammatory changes to suggest cholecystitis. RIGHT KIDNEY AND URETER: No solid masses. No significant calcification. No hydronephrosis or hydroure ter. LEFT KIDNEY AND URETER: Minimal nonobstructive nephrolithiasis. Otherwise unremarkable. AORTA AND RETROPERITONEUM: Heavy atherosclerotic calcification. Similar appearance to prior. No ret roperitoneal mass or hematoma or adenopathy. BOWEL AND PERITONEAL CAVITY: No obvious masses or inflammatory changes. No free fluid. APPENDIX: Surgically absent. PELVIS, BLADDER, AND ABDOMINAL WALL:No abnormal masses. No free fluid. Bladder normal. BONES: No significant findings. OTHER: No other significant finding. IMPRESSION: 1. No acute or suspicious abdominopelvic abnormality. TECHNICAL DOCUMENTATION: JOB ID: [id number] Quality ID # 436: Final reports with documentation of one or more dose reduction techniques (e.g., Au tomated exposure control, adjustment of the mA and/or kV according to patient size, use of iterative reconstruction technique) 2010 [employer]- All Rights Reserved Reading location - IP/workstation name: [email or web address]
== END ==
LOC: RAD 08:00
PROVIDERS: ATTEND Physician Assistant Medical
DX: C34.32 Malignant neoplasm of lower lobe, left bronchus or lung (principal)
CPT/HCPCS: 71250; 74176

== ENCOUNTER → 2020-09-02 | Outpatient (CLI) | payer MEDICARE, OTHER ==
--- NOTE | 2020-09-02 13:58 | RADIOLOGY REPORT (SQ) ---
EXAM DESCRIPTION: CT CHEST WITHOUT; CT ABD/PELVIS NO ORAL OR IV IMAGES COMPLETED DATE/TIME: 09/02/2020 10:39 am; 09/02/2020 10:42 am REASON FOR STUDY: (C34.32)MALIGNANT NEOPLASM OF LOWER LOBE, LEFT BRONCHUS OR LUNG C34.32 MALIGNANT NEOPLASM OF LOWER LOBE, LEFT BRONCHUS OR URIEL COMPARISON: 06/06/2020 TECHNIQUE: CT scan of the chest performed without intravenous contrast using helical scanning techni que. Images reviewed with lung, soft tissue and bone windows. Reconstructed coronal and sagittal MPR images reviewed. All images stored on PACS. All CT scanners at this facility use dose modulation, iterative reconstruction, and/or weight based d osing when appropriate to reduce radiation dose to as low as reasonably achievable (ALARA). [facility]: Dose Right [facility]: CareDose [facility]: Dose Right [facility]: Teradose 4D [facility]: [employer] RADIATION DOSE: CT Rad equipment meets quality standard of care and radiation dose reduction techniq ues were employed. CTDIvol: 8.0 - 14.1 mGy. DLP: 1096 mGy-cm. mGy. LIMITATIONS: No technical limitations. FINDINGS: AXILLAE: No adenopathy. CHEST WALL: No masses. No subcutaneous air. LUNGS: Irregular left lower lobe nodule is stable. See image 73 series 6. Additional small pulmonar y nodules are stable. However, there is a new finding in the right upper lobe on images 28 through 3 2 where there is an irregular somewhat spiculated area of opacification that is not present on the pr ior study. On image 30 this measures 17.6 x 6.8 mm. PLEURA: No effusions. No calcifications. THYROID: No masses or significant asymmetry. HILAR AND MEDIASTINAL STRUCTURES: No identified masses or abnormal nodes. AORTA AND GREAT VESSELS: No aneurysm. HEART: No pericardial effusion. HARDWARE AND LIFELINES: None. BONES: No significant finding. OTHER: No other significant finding. IMPRESSION: There is a new irregular area of masslike opacification in the right upper lobe measurin g 17.6 x 6.8 mm. Recommend repeat PET-CT. The chest is otherwise stable. COMPARISON: 06/06/2020 TECHNIQUE: CT scan of the abdomen and pelvis performed without intravenous contrast and withoutoral contrast using helical scanning technique with dynamic intravenous contrast injection. Images review ed with lung, soft tissue and bone windows. Reconstructed coronal and sagittal MPR images reviewed. All images stored on PACS. All CT scanners at this facility use dose modulation, iterative reconstruction, and/or weight based d osing when appropriate to reduce radiation dose to as low as reasonably achievable (ALARA). [facility]: Dose Right [facility]: SureCare [facility]: Dose Right [facility]: Teradose 4D [facility]: Smart [employer] RADIATION DOSE: CT Rad equipment meets quality standard of care and radiation dose reduction techniq ues were employed. CTDIvol: 8.0 - 14.1 mGy. DLP: 1096 mGy-cm. mGy. LIMITATIONS: None. FINDINGS: LIVER: Normal size. No masses. No dilated ducts. SPLEEN: Normal size. No focal lesions. PANCREAS: No masses. No significant calcifications. No adjacent inflammation or peripancreatic flui d collections. Pancreatic duct not dilated. GALLBLADDER: No identified stones by CT criteria. No inflammatory changes to suggest cholecystitis. ADRENAL GLANDS: No significant masses or asymmetry. RIGHT KIDNEY AND URETER: Atrophic. No mass. No significant calcifications. No hydronephrosis or hydroureter. LEFT KIDNEY AND URETER: Atrophic. No mass. No urinary calcifications. There are couple small vasc ular calcifications. No hydronephrosis or hydroureter. AORTA AND VESSELS: No aneurysm. Extensive aortoiliac atherosclerosis with atherosclerosis in the sherrie al arteries and in the SMA and in the splenic artery. RETROPERITONEUM: No retroperitoneal adenopathy, hemorrhage or masses. APPENDIX: Surgically absent. LARGE AND SMALL BOWEL: No dilatation. No masses. No wall thickening. ABDOMINAL WALL: No hernia or masses. PERITONEAL CAVITY: No free air. No free fluid. No peritoneal implants or masses. PELVIS: No mass or free fluid. Normal bladder. BONES: No significant or acute findings. OTHER: No other significant finding. IMPRESSION: There is no metastatic disease in the abdomen or pelvis. Renal atrophy is present. Ath erosclerosis is present. TECHNICAL DOCUMENTATION: JOB ID: [id number] Quality ID # 436: Final reports with documentation of one or more dose reduction techniques (e.g., Au tomated exposure control, adjustment of the mA and/or kV according to patient size, use of iterative reconstruction technique) 2010 [employer]- All Rights Reserved Reading location - IP/workstation name: [email or web address]
== END ==
LOC: RAD 10:21
PROVIDERS: ATTEND Physician Assistant Medical
DX: C34.32 Malignant neoplasm of lower lobe, left bronchus or lung (principal); N26.1 Atrophy of kidney (terminal)
CPT/HCPCS: 71250; 74176

== ENCOUNTER → 2020-10-30 | Outpatient (CLI) | payer MEDICARE, OTHER ==
--- NOTE | 2020-10-30 11:30 | RADIOLOGY REPORT (SQ) ---
EXAM DESCRIPTION: CT ABD/PELVIS NO ORAL OR IV; CT CHEST WITHOUT IMAGES COMPLETED DATE/TIME: 10/30/2020 7:41 am REASON FOR STUDY: LUNG CANCER C34.32 MALIGNANT NEOPLASM OF LOWER LOBE, LEFT BRONCHUS OR URIEL COMPARISON: 09/02/2020 TECHNIQUE: CT scan of the chest performed without intravenous contrast using helical scanning techni que. Images reviewed with lung, soft tissue and bone windows. Reconstructed coronal and sagittal MPR images reviewed. All images stored on PACS. All CT scanners at this facility use dose modulation, iterative reconstruction, and/or weight based d osing when appropriate to reduce radiation dose to as low as reasonably achievable (ALARA). [facility]: Dose Right [facility]: CareDose [facility]: Dose Right [facility]: Teradose 4D [facility]: Smart [employer] RADIATION DOSE: CT Rad equipment meets quality standard of care and radiation dose reduction techniq ues were employed. CTDIvol: 8.7 - 14.6 mGy. DLP: 1094 mGy-cm. mGy. LIMITATIONS: No technical limitations. FINDINGS: AXILLAE: No adenopathy. CHEST WALL: No masses. No subcutaneous air. LUNGS: Marked centrilobular emphysema. Irregular right apical opacities similar in size, but slightl y decreased in density from prior examination (series 6, image 27). Irregular nodular opacity lever miller ior left lower lobe is also stable. Slight increase in size of a left lower lobe nodule just anterio rly (series 6, image 75, measuring 7 mm, previously 5 mm. Slight decrease in a nodular opacity adjac ent to the right major fissure (series 6, image 72). Additional small bilateral nodules appear gross ly unchanged. No new consolidation. PLEURA: No effusions. No calcifications. THYROID: No masses or significant asymmetry. HILAR AND MEDIASTINAL STRUCTURES: No identified masses or abnormal nodes. AORTA AND GREAT VESSELS: No aneurysm. HEART: No pericardial effusion. Coronary artery calcifications. HARDWARE AND LIFELINES: None. BONES: No significant finding. OTHER: No other significant finding. IMPRESSION: 1. Previously described right apical irregular nodular opacities similar in size, thoug h slightly decreased in density since prior. 2. There is a central left lower lobe nodule which is slightly increased in size from prior. Recomm end continued close follow-up to assess stability. Additional scattered nodules appear similar to pr evious examination. COMPARISON: 09/02/2020 TECHNIQUE: CT scan of the abdomen and pelvis performed without intravenous contrast and withoutoral contrast using helical scanning technique with dynamic intravenous contrast injection. Images review ed with lung, soft tissue and bone windows. Reconstructed coronal and sagittal MPR images reviewed. All images stored on PACS. All CT scanners at this facility use dose modulation, iterative reconstruction, and/or weight based d osing when appropriate to reduce radiation dose to as low as reasonably achievable (ALARA). [facility]: Dose Right [facility]: SureCare [facility]: Dose Right [facility]: Teradose 4D [facility]: [employer] RADIATION DOSE: CT Rad equipment meets quality standard of care and radiation dose reduction techniq ues were employed. CTDIvol: 8.7 - 14.6 mGy. DLP: 1094 mGy-cm. mGy. LIMITATIONS: Suboptimal evaluation of the vasculature and solid organs due to lack of IV contrast. FINDINGS: LIVER: Normal size. No masses. No dilated ducts. SPLEEN: Normal size. No focal lesions. PANCREAS: No masses. No significant calcifications. No adjacent inflammation or peripancreatic flui d collections. Pancreatic duct not dilated. GALLBLADDER: No identified stones by CT criteria. No inflammatory changes to suggest cholecystitis. ADRENAL GLANDS: No significant masses or asymmetry. RIGHT KIDNEY AND URETER: No suspicious mass identified. Assessment limited by lack of IV contrast. Probable small cyst lateral right kidney is unchanged. No significant calcifications. No hydronep hrosis or hydroureter. LEFT KIDNEY AND URETER: No solid masses. Assessment limited by lack of IV contrast. Left renal calc ifications are probably vascular. Cannot definitively exclude a nonobstructing calculus at the upper pole. No hydronephrosis or hydroureter. AORTA AND VESSELS: No aneurysm. RETROPERITONEUM: No retroperitoneal adenopathy, hemorrhage or masses. APPENDIX: Surgically absent. LARGE AND SMALL BOWEL: No dilatation. No masses. No wall thickening. ABDOMINAL WALL: No hernia or masses. PERITONEAL CAVITY: No free air. No free fluid. No peritoneal implants or masses. PELVIS: No mass or free fluid. Normal bladder. BONES: No significant or acute findings. OTHER: No other significant finding. IMPRESSION: No metastatic disease identified on noncontrast CT of the abdomen and pelvis. TECHNICAL DOCUMENTATION: JOB ID: [id number] Quality ID # 436: Final reports with documentation of one or more dose reduction techniques (e.g., Au tomated exposure control, adjustment of the mA and/or kV according to patient size, use of iterative reconstruction technique) 2010 [employer]- All Rights Reserved Reading location - IP/workstation name: [email or web address]
--- NOTE | 2020-10-30 11:30 | RADIOLOGY REPORT (SQ) ---
EXAM DESCRIPTION: CT ABD/PELVIS NO ORAL OR IV; CT CHEST WITHOUT IMAGES COMPLETED DATE/TIME: 10/30/2020 7:41 am REASON FOR STUDY: LUNG CANCER C34.32 MALIGNANT NEOPLASM OF LOWER LOBE, LEFT BRONCHUS OR URIEL COMPARISON: 09/02/2020 TECHNIQUE: CT scan of the chest performed without intravenous contrast using helical scanning techni que. Images reviewed with lung, soft tissue and bone windows. Reconstructed coronal and sagittal MPR images reviewed. All images stored on PACS. All CT scanners at this facility use dose modulation, iterative reconstruction, and/or weight based d osing when appropriate to reduce radiation dose to as low as reasonably achievable (ALARA). [facility]: Dose Right [facility]: CareDose [facility]: Dose Right [facility]: Teradose 4D [facility]: Smart Leostream RADIATION DOSE: CT Rad equipment meets quality standard of care and radiation dose reduction techniq ues were employed. CTDIvol: 8.7 - 14.6 mGy. DLP: 1094 mGy-cm. mGy. LIMITATIONS: No technical limitations. FINDINGS: AXILLAE: No adenopathy. CHEST WALL: No masses. No subcutaneous air. LUNGS: Marked centrilobular emphysema. Irregular right apical opacities similar in size, but slightl y decreased in density from prior examination (series 6, image 27). Irregular nodular opacity bottom wheeler ior left lower lobe is also stable. Slight increase in size of a left lower lobe nodule just anterio rly (series 6, image 75, measuring 7 mm, previously 5 mm. Slight decrease in a nodular opacity adjac ent to the right major fissure (series 6, image 72). Additional small bilateral nodules appear gross ly unchanged. No new consolidation. PLEURA: No effusions. No calcifications. THYROID: No masses or significant asymmetry. HILAR AND MEDIASTINAL STRUCTURES: No identified masses or abnormal nodes. AORTA AND GREAT VESSELS: No aneurysm. HEART: No pericardial effusion. Coronary artery calcifications. HARDWARE AND LIFELINES: None. BONES: No significant finding. OTHER: No other significant finding. IMPRESSION: 1. Previously described right apical irregular nodular opacities similar in size, thoug h slightly decreased in density since prior. 2. There is a central left lower lobe nodule which is slightly increased in size from prior. Recomm end continued close follow-up to assess stability. Additional scattered nodules appear similar to pr evious examination. COMPARISON: 09/02/2020 TECHNIQUE: CT scan of the abdomen and pelvis performed without intravenous contrast and withoutoral contrast using helical scanning technique with dynamic intravenous contrast injection. Images review ed with lung, soft tissue and bone windows. Reconstructed coronal and sagittal MPR images reviewed. All images stored on PACS. All CT scanners at this facility use dose modulation, iterative reconstruction, and/or weight based d osing when appropriate to reduce radiation dose to as low as reasonably achievable (ALARA). [facility]: Dose Right [facility]: SureCare [facility]: Dose Right [facility]: Teradose 4D [facility]: BioStable RADIATION DOSE: CT Rad equipment meets quality standard of care and radiation dose reduction techniq ues were employed. CTDIvol: 8.7 - 14.6 mGy. DLP: 1094 mGy-cm. mGy. LIMITATIONS: Suboptimal evaluation of the vasculature and solid organs due to lack of IV contrast. FINDINGS: LIVER: Normal size. No masses. No dilated ducts. SPLEEN: Normal size. No focal lesions. PANCREAS: No masses. No significant calcifications. No adjacent inflammation or peripancreatic flui d collections. Pancreatic duct not dilated. GALLBLADDER: No identified stones by CT criteria. No inflammatory changes to suggest cholecystitis. ADRENAL GLANDS: No significant masses or asymmetry. RIGHT KIDNEY AND URETER: No suspicious mass identified. Assessment limited by lack of IV contrast. Probable small cyst lateral right kidney is unchanged. No significant calcifications. No hydronep hrosis or hydroureter. LEFT KIDNEY AND URETER: No solid masses. Assessment limited by lack of IV contrast. Left renal calc ifications are probably vascular. Cannot definitively exclude a nonobstructing calculus at the upper pole. No hydronephrosis or hydroureter. AORTA AND VESSELS: No aneurysm. RETROPERITONEUM: No retroperitoneal adenopathy, hemorrhage or masses. APPENDIX: Surgically absent. LARGE AND SMALL BOWEL: No dilatation. No masses. No wall thickening. ABDOMINAL WALL: No hernia or masses. PERITONEAL CAVITY: No free air. No free fluid. No peritoneal implants or masses. PELVIS: No mass or free fluid. Normal bladder. BONES: No significant or acute findings. OTHER: No other significant finding. IMPRESSION: No metastatic disease identified on noncontrast CT of the abdomen and pelvis. TECHNICAL DOCUMENTATION: JOB ID: [id number] Quality ID # [id number]: Final reports with documentation of one or more dose reduction techniques (e.g., Au tomated exposure control, adjustment of the mA and/or kV according to patient size, use of iterative reconstruction technique) 2010 [employer]- All Rights Reserved Reading location - IP/workstation name: [email or web address]
--- NOTE | 2020-10-30 12:41 | RADIOLOGY REPORT (SQ) ---
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 Images stored on PACS. LIMITATIONS: There is relatively diffuse artifact on GRE sequence likely due to recent iron injectio n. This partially degrades evaluation for the assessment of small amount of subarachnoid hemorrhage. FINDINGS: ANATOMY: No anomalies. Normal vascular flow voids. Pituitary fossa normal. CSF SPACES: Normal in size and contour. No hemorrhage. CEREBRUM: A few high-signal intensity lesions scattered throughout the white matter on FLAIR imaging with distribution suggesting chronic micro-vascular ischemic change. Sulci and gyri normal in size a nd contour. Artifact on GRE sequence as above. No definite evidence of hemorrhage, mass or extraaxi al fluid collection. POSTERIOR FOSSA: Artifact on GRE sequence as above. No other signal alteration or definite evidence of acute hemorrhage. No edema, masses or mass effect. Internal auditory canals, cerebello-pontine a ngles, mastoids normal. DIFFUSION: Negative for acute or sub-acute infarction. ORBITS: No masses. Globes normal. PARANASAL SINUSES: No fluid levels. Mucosa normal. OTHER: No other significant finding. IMPRESSION: 1. Artifact on GRE sequence likely due to recent iron injection. No definite acute int racranial abnormality or new finding suspicious for metastatic disease on noncontrast MRI of the brai n. 2. Stable mild chronic small vessel ischemic changes. EVIDENCE OF ACUTE STROKE: NO. TECHNICAL DOCUMENTATION: JOB ID: [id number] [employer]- All Rights Reserved Reading location - IP/workstation name: [email or web address]
== END ==
LOC: RAD 11:37
PROVIDERS: ATTEND Physician Assistant Medical
DX: C34.32 Malignant neoplasm of lower lobe, left bronchus or lung (principal)
CPT/HCPCS: 70551; 71250; 74176